=== PATIENT | female | born 1955 | race Caucasian/White ===

== ENCOUNTER 2017-03-16 08:20 | Inpatient (IN) | payer BC ==
[~2017-03-16] VITALS: Ht 157.5 cm; Wt 69.3 kg
[~2017-03-16 08:20] MED LIST: ALEVE220 MG PO; ASPIR 8181 M1 PO; BENADRYL25 MG PO; CALCIUM 500 +1 EACH PO; DETROL1 MG PO; LIPITOR40 MG PO; METAMUCIL PACKE1 PKT PO; ONE DAILY FOR1 EAC3 PO; OXYBUTYNIN CHLO10 MG PO; RHINOCORT ALL8.43 ML BOTH NARES
[2017-03-16 11:14] VITALS: BP 149/80
[2017-03-16 18:00] VITALS: BP 161/75
[2017-03-16 20:13] VITALS: BP 132/68
[2017-03-16 23:36] VITALS: BP 104/50
[2017-03-17 04:12] VITALS: BP 100/54
[2017-03-17] MEDS ORDERED: HYDROCODON-ACE1 EAC7 PO (08:38)
[2017-03-17] MEDS ORDERED: CYCLOBENZAPRINE10 MG PO (08:38)
[2017-03-17 08:56] VITALS: BP 130/76
[2017-03-17 16:01] VITALS: BP 150/68
== END 2017-03-17 17:52 | disposition home or self-care (01) | DRG 519 ==
LOC: 2SOUTH 08:20 → 3EAST 10:10 → 2SOUTH 10:34 → 3EAST 17:50
PROC: 00NW0ZZ Release Cervical Spinal Cord, Open Approach (ICD-10-PCS; principal; 2017-03-16)
DX: M48.02 Spinal stenosis, cervical region (principal); M47.12 Other spondylosis with myelopathy, cervical region; M51.16 Intervertebral disc disorders with radiculopathy, lumbar region; M21.371 Foot drop, right foot; M41.26 Other idiopathic scoliosis, lumbar region; E78.00 Pure hypercholesterolemia, unspecified; Z98.1 Arthrodesis status
CPT/HCPCS: 72020; 76000; 94799; 95938; J0131; J0330; J0690; J1100; J1170; J1580; J1885; J2250; J2405; J3010; J3370; J3480